=== PATIENT | male | born 1950 | race Caucasian/White ===

== ENCOUNTER 2023-11-06 17:35 | Emergency (ER) | payer OTHER ==
[2023-11-06] MEDS ORDERED: ONDANSETRON 4 MG/2 ML VIAL ONE (18:23)
[2023-11-06] MEDS ORDERED: MORPHINE 4 MG/ML SYR ONE (18:24)
[2023-11-06] MEDS ORDERED: NA CHLORIDE 0.9% 1,000 ML ONE (18:24)
[2023-11-06] MEDS ORDERED: DIAZEPAM 5 MG TABLET ONE (18:24)
[2023-11-06 18:26] LABS: Absolute Basophils 0.1 K/uL (0-0.5); Absolute Eosinophils 0.3 K/uL (0-0.5); Absolute Lymphocytes (CBC) 2.1 K/uL (0.7-4.9); Absolute Monocytes 0.8 K/uL (0.1-1.3); Absolute Neutrophil 2.9 K/uL (1.8-8.0); Basophils % 1.3 % (0-1.3); Hematocrit 35.3 % (39.6-49.0); Hemoglobin 11.6 g/dL (13.6-17.9); Lymphocytes % 34.3 % (15.3-44.8); MCH 27.2 pg (27.0-35.0); MCHC 32.8 g/dL (32.0-36.0); MCV 83.1 fL (80-100); MPV 7.3 fL (7.6-11.3); Monocytes % 12.4 % (3.3-12.3); Nucleated Red Blood Cells % 0.1 % (0-0); Platelets 302 thou/uL (152-406); RBC Red Blood Cell Count 4.24 M/uL (4.33-5.43); Red Cell Distribution Width 17.4 % (12.1-15.2)
[2023-11-06 18:44] LABS: Anion Gap 11.7 mEq/L (5.0-15.0); Potassium 3.7 mEq/L (3.5-5.1); Troponin High Sensitivity 10.8 pg/mL (<58.9)
--- NOTE | 2023-11-06 18:51 | RAD REPORT ---
EXAM DESCRIPTION: CT - Head Brain Wo Cont - 11/06/2023 6:39 pm CLINICAL HISTORY: Dizziness;Headache;Weakness COMPARISON: Sinus Wo Cont dated 10/08/2022 TECHNIQUE: All CT scans are performed using dose optimization technique as appropriate and may inclu de automated exposure control or mA/KV adjustment according to patient size. FINDINGS: No intracranial hemorrhage, hydrocephalus or extra-axial fluid collection.Mild chronic sma ll vessel ischemic changes .No areas of brain edema or evidence of midline shift. 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 Chronic mucoperiosteal thickening likely reflecting chronic sinusitis. Polypoid thickening at the eth moid air cells. Prior functional endoscopic sinus surgery. The calvarium is intact. IMPRESSION: No acute intracranial abnormality.
--- NOTE | 2023-11-06 18:59 | RAD REPORT ---
EXAM DESCRIPTION: RAD - Chest Single View - 11/06/2023 6:50 pm CLINICAL HISTORY: dizziness COMPARISON: Chest Pa And Lat (2 Views) dated 07/12/2015 FINDINGS: Lines: None. Lungs: No evidence of edema or pneumonia. Pleural: No significant pleural effusions or pneumothorax. Small nodular opacities in the right upper lobe are probably benign. This may represent the right upper lobe nodule seen on the PET-CT from . Cardiac: Mild to mild cardiomegaly . Mediastinum: Within normal limits. Bones: No acute fractures. Left shoulder arthroplasty . Sternotomy. Other: None IMPRESSION: No acute process in the lungs. Cardiomegaly.
--- NOTE | 2023-11-06 19:06 | EDPHYS ---
Physician Documentation [facility] Name: Bryson Hargrove Age: 73 yrs Sex: Male : 1950 Arrival Date: 11/06/2023 Time: 17:35 Bed 3 Private MD: ED Physician Aaron Martino HPI: 11/05 18:58 This 73 yrs old Male presents to ER via EMS with complaints of Headache, genevieve Dizziness. 18:58 The patient complains of pain to the top of head, forehead, left frontal area and right genevieve frontal area. The patient describes the headache as aching, constant. Onset: The symptoms/episode began/occurred 7 day(s) ago. Associated signs and symptoms: Pertinent positives: dizziness, sinus congestion, sinus tenderness. Severity of symptoms: At its worst the pain was mild, in the emergency department the pain is unchanged. Headache History: The patient has had previous headaches and this one is similar to previous episodes. The symptoms are alleviated by nothing. the symptoms are aggravated by nothing. The patient has experienced similar episodes in the past, multiple times. 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 - Infectious Disease History:: Denies. - Social history:: Smoking status: Patient/guardian denies using tobacco, but has a distant history of tobacco abuse. - Family history:: not pertinent. ROS: 18:58 Constitutional: Negative for fever, chills, and weight loss, Eyes: Negative for injury, genevieve pain, redness, and discharge, Neck: Negative for injury, pain, and swelling, Cardiovascular: Negative for chest pain, palpitations, and edema, Respiratory: Negative for shortness of breath, cough, wheezing, and pleuritic chest pain, Abdomen/GI: Negative for abdominal pain, nausea, vomiting, diarrhea, and constipation, Back: Negative for injury and pain, : Negative for injury, bleeding, discharge, and swelling, MS/Extremity: Negative for injury and deformity, Neuro: Negative for headache, weakness, numbness, tingling, and seizure, Psych: Negative for depression, anxiety, suicide ideation, homicidal ideation, and hallucinations, Allergy/Immunology: Negative for hives, rash, and allergies, Endocrine: Negative for neck swelling, polydipsia, polyuria, polyphagia, and marked weight changes, Hematologic/Lymphatic: Negative for swollen nodes, abnormal bleeding, and unusual bruising, 18:58 ENT: Positive for rhinorrhea, sinus congestion, sinus pain, Exam: 18:58 Constitutional: This is a well developed, well nourished patient who is awake, alert, genevieve and in no acute distress. Head/Face: Normocephalic, atraumatic. Eyes: Pupils equal round and reactive to light, extra-ocular motions intact. Lids and lashes normal. Conjunctiva and sclera are non-icteric and not injected. Cornea within normal limits. Periorbital areas with no swelling, redness, or edema. ENT: Nares patent. No nasal discharge, no septal abnormalities noted. Tympanic membranes are normal and external auditory canals are clear. Oropharynx with no redness, swelling, or masses, exudates, or evidence of obstruction, uvula midline. Mucous membranes moist. Neck: Trachea midline, no thyromegaly or masses palpated, and no cervical lymphadenopathy. Supple, full range of motion without nuchal rigidity, or vertebral point tenderness. No Meningismus. Chest/axilla: Normal chest wall appearance and motion. Nontender with no deformity. No lesions are appreciated. Cardiovascular: Regular rate and rhythm with a normal S1 and S2. No gallops, murmurs, or rubs. Normal PMI, no JVD. No pulse deficits. Respiratory: Lungs have equal breath sounds bilaterally, clear to auscultation and percussion. No rales, rhonchi or wheezes noted. No increased work of breathing, no retractions or nasal flaring. Abdomen/GI: Soft, non-tender, with normal bowel sounds. No distension or tympany. No guarding or rebound. No evidence of tenderness throughout. Back: No spinal tenderness. No costovertebral tenderness. Full range of motion. Male : Normal genitalia with no discharge or lesions. Skin: Warm, dry with normal turgor. Normal color with no rashes, no lesions, and no evidence of cellulitis. MS/ Extremity: Pulses equal, no cyanosis. Neurovascular intact. Full, normal range of motion. Psych: Awake, alert, with orientation to person, place and time. Behavior, mood, and affect are within normal limits. 18:58 ECG was reviewed by the Attending Physician. 18:58 Musculoskeletal/extremity: DVT Exam: No signs of deep vein thrombosis. no pain, no swelling, no tenderness, negative Homans' sign noted on exam, no appreciated bluish discoloration, no erythema, no increased warmth, 18:58 Neuro: Orientation: is normal, appropriate for stated age, no acute changes, Mentation: is normal, appropriate for stated age, no acute changes, Memory: is normal, appropriate for stated age, no acute changes, Cranial nerves: grossly normal, is grossly normal based on the patient's age, no acute changes, Cerebellar function: is grossly normal, is grossly normal based on the patient's age, no acute changes, Motor: is normal, is grossly normal based on the patient's age, no acute changes, moves all fours, strength is normal, strength is 5/5 in all extremities, Gait: not applicable Babinski testing is normal, seizure activity, is not displayed by the patient, Vital Signs: 17:43 BP 154 / 86; Pulse 85; Resp 18; Temp 98.4; Pulse Ox 94% on R/A; Weight 79.38 kg; Height iw 5 ft. 8 in. ; Pain 7/10; 18:32 BP 127 / 63; Pulse 86; Resp 18; Pulse Ox 94% on R/A; ld1 19:34 BP 150 / 88; Pulse 92; Resp 18; Temp 98.4; Pulse Ox 96% ; cp4 17:43 Body Mass Index 26.61 (79.38 kg, 172.72 cm) iw 17:43 Pain Scale: Adult iw Lawrence Coma Score: 18:58 Eye Response: spontaneous(4). Motor Response: obeys commands(6). Verbal Response: genevieve oriented(5). Total: 15. 19:01 Eye Response: spontaneous(4). Motor Response: obeys commands(6). Verbal Response: genevieve oriented(5). Total: 15. MDM: 17:50 Patient medically screened. genevieve 19:01 Differential diagnosis: hypoglycemia, hyponatremia, migraine, neoplasm, sinusitis, genevieve tension headache, trigeminal neuralgia, uremia, vasomotor headache. Data reviewed: vital signs, nurses notes, lab test result(s), EKG, radiologic studies, CT scan, plain films. Consideration of Admission/Observation Escalation of care including admission/observation considered. I considered the following discharge prescriptions or medication management in the emergency department Medications were administered in the Emergency Department. See MAR. Independent interpretation of the following test(s) in the Emergency Department EKG: See my EKG interpretation above. Test considered but Not performed: MRI: NO MRI BRAIN. Historians other than the Patient: PT WELL INFORMED. Care significantly affected by the following chronic conditions: Hypertension, CAD , MT. 11/05 18:04 Order name: Basic Metabolic Panel; Complete Time: 18:50 11/05 18:04 Order name: CBC with Diff; Complete Time: 18:50 11/05 18:04 Order name: Troponin HS; Complete Time: 18:50 11/05 18:12 Order name: Urinalysis w/ reflexes genevieve 11/05 18:04 Order name: XRAY Chest (1 view); Complete Time: 19:07 11/05 18:04 Order name: CT Head Brain wo Cont; Complete Time: 18:51 11/05 18:04 Order name: Cardiac monitoring; Complete Time: 19:03 11/05 18:04 Order name: EKG - Nurse/Tech; Complete Time: 19:03 11/05 18:04 Order name: IV Saline Lock; Complete Time: 18:18 iw 11/05 18:04 Order name: Labs collected and sent; Complete Time: 18:18 iw 11/05 18:04 Order name: O2 Per Protocol; Complete Time: 18:18 iw 11/05 18:04 Order name: O2 Sat Monitoring; Complete Time: 18:18 iw EC:58 Rate is 76 beats/min. Rhythm is regular. QRS Hamilton is Normal. FL interval is normal. QRS genevieve interval is normal. QT interval is normal. No Q waves. T waves are Normal. No ST changes noted. Clinical impression: NSR w/ Non-specific ST/T Changes and No evidence of ischemia. Interpreted by me. Reviewed by me. Administered Medications: 18:32 Drug: NS 0.9% IV 500 ml IV at bolus once Route: IV; Rate: bolus; Site: right wrist; iw 19:20 Follow up: Response: No adverse reaction; IV Status: Completed infusion cp4 18:32 Drug: morphine IVP or IV 4 mg IVP once over 4 mins Route: IVP; Infused Over: 4 mins; iw Site: right wrist; 19:03 Follow up: Response: No adverse reaction; Pain is decreased iw 18:32 Drug: Ondansetron IVP 4 mg IVP once; over 2 minutes Route: IVP; Site: right wrist; iw 19:03 Follow up: Response: No adverse reaction iw 18:32 Drug: Diazepam PO 5 mg PO once Route: PO; iw 19:03 Follow up: Response: Marked relief of symptoms iw 19:12 Drug: Rocephin IV 2 grams IV at per protocol once; Given slow IV push per pharmarcy cp4 instructions Route: IV; Rate: per protocol; Site: right antecubital; 19:19 Follow up: Response: No adverse reaction; IV Status: Completed infusion cp4 19:19 Drug: Decadron - Dexamethasone IVP 10 mg IVP once Route: IVP; Site: right antecubital; cp4 19:35 Follow up: Response: No adverse reaction cp4 Disposition Summary: 11/06/23 19:06 Discharge Ordered Notes: Location: Home genevieve Problem: new genevieve Symptoms: have improved genevieve Condition: Stable genevieve Diagnosis - Chronic sinusitis, unspecified - ACUTE EXACERBATION genevieve - Dizziness and giddiness genevieve - Headache genevieve Followup: genevieve - With: Private Physician - When: 2 - 3 days - Reason: Recheck today's complaints, Continuance of care, Re-evaluation by your physician Followup: genevieve - With: Adore Rivera MD - When: 2 - 3 days - Reason: Recheck today's complaints, Re-evaluation by your physician Discharge Instructions: - Discharge Summary Sheet genevieve - Dizziness genevieve - Sinusitis, Adult genevieve - Sinusitis, Adult, [id number] genevieve Forms: - Medication Reconciliation Form genevieve - Antibiotic Education genevieve - Prescription Opioid Use genevieve - Patient Portal Instructions genevieve - Leadership Thank You Letter genevieve Prescriptions: - Augmentin 875-125 mg Oral tablet - take 1 tablet ORAL route every 12 hours for 7 days; 14 tablet; Refills: 0, genevieve Product Selection Permitted - Medrol (Jean Paul) 4 mg Oral Tablets, Dose Pack - take 1 tablet ORAL route as directed - follow package instructions; 1 packet; genevieve Refills: 0, Product Selection Permitted Signatures: Dispatcher [employer] EDAaron Oropeza MD MD cha Williams, Irene, JOHN RN Charito Dunbar cp4 Corrections: (The following items were deleted from the chart) 18:05 18:04 BASIC METABOLIC PANEL+C.LAB.BRZ ordered. EDMS EDMS 18:05 18:04 CBC+H.LAB.BRZ ordered. EDMS EDMS 18:05 18:04 Troponin High Sensitivity+C.LAB.BRZ ordered. EDMS EDMS 18:05 18:05 Chest Single View+RAD.RAD.BRZ ordered. EDMS EDMS 18:05 18:05 Head Brain Wo Cont+CT.RAD.BRZ ordered. EDMS EDMS
--- NOTE | 2023-11-06 19:06 | ER ---
Nurse's Notes [facility] Name: Bryson Hargrove Age: 73 yrs Sex: Male : 1950 Arrival Date: 11/06/2023 Time: 17:35 Bed 3 Private MD: Diagnosis: Chronic sinusitis, unspecified-ACUTE EXACERBATION;Dizziness and giddiness;Headache Presentation: 11/05 17:38 Chief complaint: Patient states: headache, dizziness, general weakness X 2-3 weeks, he iw has "polyps" in his head that he sees ENT Dr. Rivera for, he fell twice today and that is not normal for him, he fell to his left side , onto his shoulder/knee, pt A\\T\\OX4, pain /10. Coronavirus screen: Client presents with at least one sign or symptom that may indicate coronavirus-19. 17:38 Method Of Arrival: [facility] 17:38 Acuity: JOSE CARLOS 3 iw 17:43 Ebola Screen: No symptoms or risks identified at this time. Initial Sepsis Screen: Does iw the patient meet any 2 criteria? No. Patient's initial sepsis screen is negative. Does the patient have a suspected source of infection? No. Patient's initial sepsis screen is negative. Risk Assessment: Do you want to hurt yourself or someone else? Patient reports no desire to harm self or others. Onset of symptoms was October 21, 2023. Triage Assessment: 19:37 Pain: Also complains of. cp4 19:37 Headache History: Denies prior headaches. 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 - Infectious Disease History:: Denies. - Social history:: Smoking status: Patient/guardian denies using tobacco, but has a distant history of tobacco abuse. - Family history:: not pertinent. Screenin:34 [facility] ED Fall Risk Assessment (Adult) History of falling in the last 3 months, iw including since admission Yes- single mechanical fall (1 pt) Confusion or Disorientation No (0 pts) Intoxicated or Sedated No (0 pts) Impaired Gait No (0 pts) Mobility Assist Device Used No (0 pt) Altered Elimination No (0 pt) Score/Fall Risk Level 0 - 2 = Low Risk Oriented to surroundings, Maintained a safe environment. Abuse screen: Denies injuries from another. Nutritional screening: No deficits noted. Tuberculosis screening: No symptoms or risk factors identified. Assessment: 18:00 General: Appears in no apparent distress. General: Appears comfortable, Behavior is iw calm, cooperative, appropriate for age. Pain:. Neuro: Level of Consciousness is awake, alert, obeys commands, Oriented to person, place, time, situation, Moves all extremities. Full function. Neuro: Reports dizziness, headache frontal area, weakness. Cardiovascular: Patient's skin is warm and dry. Respiratory: Respiratory effort is even, unlabored, Respiratory pattern is regular. GI: Abdomen is non-distended. Derm: Skin is intact, is healthy with good turgor. Musculoskeletal: Range of motion: intact in all extremities. Vital Signs: 17:43 BP 154 / 86; Pulse 85; Resp 18; Temp 98.4; Pulse Ox 94% on R/A; Weight 79.38 kg; Height iw 5 ft. 8 in. ; Pain 7/10; 18:32 BP 127 / 63; Pulse 86; Resp 18; Pulse Ox 94% on R/A; ld1 19:34 BP 150 / 88; Pulse 92; Resp 18; Temp 98.4; Pulse Ox 96% ; cp4 17:43 Body Mass Index 26.61 (79.38 kg, 172.72 cm) iw 17:43 Pain Scale: Adult iw Randell Coma Score: 18:58 Eye Response: spontaneous(4). Motor Response: obeys commands(6). Verbal Response: genevieve oriented(5). Total: 15. 19:01 Eye Response: spontaneous(4). Motor Response: obeys commands(6). Verbal Response: genevieve oriented(5). Total: 15. ED Course: 17:36 Patient arrived in ED. iw 17:40 Triage completed. iw 17:41 Arm band placed on. iw 17:42 Lety Baker, RN is Primary Nurse. iw 17:43 Maintain EMS IV. Dressing intact. Good blood return noted. Site clean \\T\\ dry. Gauge \\T\\ iw site: 20 RAC. 17:50 Aaron Martino MD is Attending Physician. genevieve 18:18 Initial lab(s) drawn, by me, sent to lab. Inserted saline lock: 20 gauge in right iw wrist, using aseptic technique. Blood collected. Flushed with 10 mL NS. 18:33 Patient has correct armband on for positive identification. iw 18:41 CT Head Brain wo Cont In Process Unspecified. EDMS 18:52 XRAY Chest (1 view) In Process Unspecified. EDMS 19:04 Adore Rivera MD is Referral Physician. genevieve 19:11 Charito Quigley is Primary Nurse. cp4 19:36 Provided Education on: sinusitis. cp4 19:36 No provider procedures requiring assistance completed. intact, bleeding controlled, No cp4 redness/swelling at site. Pressure dressing applied. Administered Medications: 18:32 Drug: NS 0.9% IV 500 ml IV at bolus once Route: IV; Rate: bolus; Site: right wrist; iw 19:20 Follow up: Response: No adverse reaction; IV Status: Completed infusion cp4 18:32 Drug: morphine IVP or IV 4 mg IVP once over 4 mins Route: IVP; Infused Over: 4 mins; iw Site: right wrist; 19:03 Follow up: Response: No adverse reaction; Pain is decreased iw 18:32 Drug: Ondansetron IVP 4 mg IVP once; over 2 minutes Route: IVP; Site: right wrist; iw 19:03 Follow up: Response: No adverse reaction iw 18:32 Drug: Diazepam PO 5 mg PO once Route: PO; iw 19:03 Follow up: Response: Marked relief of symptoms iw 19:12 Drug: Rocephin IV 2 grams IV at per protocol once; Given slow IV push per pharmarcy cp4 instructions Route: IV; Rate: per protocol; Site: right antecubital; 19:19 Follow up: Response: No adverse reaction; IV Status: Completed infusion cp4 19:19 Drug: Decadron - Dexamethasone IVP 10 mg IVP once Route: IVP; Site: right antecubital; cp4 19:35 Follow up: Response: No adverse reaction cp4 Medication: 19:36 VIS not applicable for this client. cp4 Outcome: 19:06 Discharge ordered by . genevieve 19:36 Discharged to home ambulatory, cp4 19:36 Condition: stable 19:36 Discharge instructions given to patient, Instructed on discharge instructions, follow up and referral plans. medication usage, Demonstrated understanding of instructions, follow-up care, medications, Prescriptions given X 2, 19:37 Patient left the ED. cp4 Signatures: Dispatcher [employer] EDMS Aaron Martino MD MD cha Williams, Irene, RN RN iw Sims, Lauren, RN RN Charito Warner cp4
[2023-11-06] MEDS ORDERED: CEFTRIAXONE 2000 MG/VIAL ONE (19:08)
[2023-11-06 19:13] LABS: Specific Gravity 1.005 (1.005-1.030); Urine Bilirubin NEGATIVE (Negative); Urine Blood Negative (Negative); Urine Clarity Clear (Clear); Urine Color Colorless (Yellow); Urine Glucose NEGATIVE (Negative); Urine Ketones NEGATIVE (Negative); Urine Microscopic Reflex YN NO UMIC; Urine Nitrite NEGATIVE (Negative); Urine Protein NEGATIVE (Negative); Urine Urobilinogen Normal (Normal)
[2023-11-06] MEDS ORDERED: dexAMETHasone 10 MG/ML VIAL ONE (19:18)
[2023-11-06 19:51] VITALS: TEMP 98.4
[2023-11-06 20:03] VITALS: BP 150/88; O2SAT 96
== END 2023-11-06 19:37 | disposition home or self-care (01) ==
LOC: ER 17:35
DX: J32.9 Chronic sinusitis, unspecified (principal); R42 Dizziness and giddiness; Z95.1 Presence of aortocoronary bypass graft; Z79.82 Long term (current) use of aspirin
CPT/HCPCS: 85025; 80048; 36415; 81003; 84484; 70450; 71045; 99284; J1100; J2405; J0696; J7030; 93005